=== PATIENT | male | born 1965 | race Caucasian/White ===

== ENCOUNTER 2025-09-26 06:10 | Day surgery (SDC) | payer BC, SELFPAY ==
[2025-09-13 09:08] LABS: Hematocrit 45.0 % (39.0-52.0); Hemoglobin 14.8 g/dL (13.0-18.0); Mean Corp Hgb Conc. 32.9 g/dL (33.0-37.0); Mean Corpuscular Volume 93.8 fL (80.0-94.0); Platelet Count 245 10^3/uL (130-400); Red Cell Dist. Width 13.1 % (11.5-14.5)
[2025-09-13 09:19] LABS: INR 1.00; PT 13.0 Sec (11.4-14.6)
[2025-09-13 09:20] LABS: APTT 25.2 Sec (23.4-35.0)
[2025-09-13 09:59] LABS: ALT (SGPT) 46 U/L (0-50); AST (SGOT) 38 U/L (17-59); Albumin 4.7 g/dl (3.5-5.0); Alkaline Phosphatase 94 U/L (38-126); Blood Urea Nitrogen 14 mg/dl (9-20); Calcium 10.3 mg/dl (8.4-10.2); Carbon Dioxide 31 mmol/L (22-30); Chloride 103 mmol/L (98-107); Glucose 98 mg/dl (70-99); Potassium 4.1 mmol/L (3.5-5.1); Sodium 137 mmol/L (135-145); Total Protein 7.8 g/dl (6.3-8.2); eGFR > 60.00
[2025-09-13 13:49] VITALS: BMI 24.6
[2025-09-26] VITALS (10 sets, daily range): BP systolic 135–164; BP diastolic 69–87; BMI 24.6
[2025-09-26] MEDS: NORMOSOL-R/PLASMALYTE-A 1000 IV (07:09)
[2025-09-26] MEDS: HEPARIN 5000 UNITS SC (07:09)
[2025-09-26] MEDS: TYLENOL 1000 MG PO (07:10)
[2025-09-26] MEDS: NEURONTIN 300 MG PO (07:10)
[2025-09-26 08:23] LABS: Turbo PTH 130.6 pg/ml (14.5-75.2)
[2025-09-26 09:17] LABS: Turbo PTH 138.5 pg/ml (14.5-75.2)
[2025-09-26 10:20] LABS: Turbo PTH 62.5 pg/ml (14.5-75.2)
--- NOTE | 2025-09-26 10:40 | OR.RPT ---
Operative Report
Operative Report
Date of Operation: September 26, 2025
Preoperative Diagnosis: Parathyroid hyperparathyroidism - E210
Postoperative Diagnosis: Same
Surgeon: Santi Cruz M.D.
Operation: Neck exploration, Left and Right Superior Parathyroidectomy - 23439
Anesthesia: GET
Estimated Blood Loss: 2 cc
Drains: None
Specimen: Left and Right Superior neck nodules, rule out parathyroid adenomas
Complications: None
Procedure:
The patient was taken to the operating room and placed in the usual supine position. After adequate general endotracheal anesthesia was established, the patient's neck was extended, prepped, and draped in the typical sterile fashion. A 4 cm
transcervical incision was made two fingerbreadths above the sternal notch. The skin incision was made with the #15 blade, and this was taken through the skin into the subcutaneous tissue. The underlying platysma muscle was divided, and subplatysmal
flaps were created superiorly to the thyroid cartilage and inferiorly to the sternal notch. Strap muscles were identified and at the midline.
Attention was turned to the patient's right side of the neck. The right thyroid lobe was mobilized medially. During this process, the right recurrent laryngeal nerve was identified and preserved throughout the surgery. The right upper neck nodule
was identified and noted to be enlarged, excised, and sent to the pathology department, which showed a hypercellular parathyroid gland. The normal-appearing right lower parathyroid gland was identified and preserved. Unfortunately, the intraoperatie
PTH failed to normalize after 15 minutes.
The attention was turned to the left side of the neck. The left thyroid lobe was mobilized medially. During this process, the left recurrent laryngeal nerve was identified and preserved throughout the surgery. The left upper neck nodule was
identified and noted to be enlarged, excised, and sent to the pathology department, which showed a hypercellular parathyroid gland. The intraoperative PTH levels normalized after 15 minutes.
After obtaining adequate hemostasis, the strap muscles were reapproximated with #3-0 Vicryl in a running fashion. The platysma muscle was reapproximated with #3-0 Vicryl in an interrupted fashion, and the skin was approximated with #4-0 Monocryl in
a running subcuticular fashion. The Steri-Strips and sterile dressings were placed. The patient tolerated the procedure well. The final instrument, needle, and sponge counts were correct. The patient was extubated and transferred to the PACU.
== END 2025-09-26 11:49 | disposition home or self-care (01) ==
LOC: SDS 06:10
PROVIDERS: ATTENDING PHYSICIAN Surgery; FAMILY PHYSICIAN Family Medicine
DX: E21.0 Primary hyperparathyroidism (principal)
CPT/HCPCS: 60500; 80053; 83970; 85027; 85610; 85730; 88305; 88307; 88331; 93005